=== PATIENT | female | born 1995 | race American Indian/Alaskan Native ===

== ENCOUNTER 2016-12-17 04:17 | Emergency (ER) | payer MEDICAID ==
[2016-12-17 04:38] VITALS: BP 135/104
[2016-12-17 05:21] LABS: Basophils % (Auto) 0.5 % (0.0-1.8); Eosinophils % (Auto) 0.6 % (0.0-4.3); Hematocrit 35.5 % (30.3-42.9); Hemoglobin 10.9 gm/dl (10.1-14.3); Mean Corpuscular HGB Conc 31 % (30-34); Mean Corpuscular Volume 82 fl (79-97); Platelet Count 332 K/mm3 (140-440); Red Blood Count 4.35 M/mm3 (3.65-5.03); Red Cell Distribution Width 15.4 % (13.2-15.2); White Blood Count 11.1 K/mm3 (4.5-11.0)
[2016-12-17 05:26] LABS: Alanine Aminotransferase 8 units/L (7-56); Albumin 4.1 g/dL (3.9-5); Albumin/Globulin Ratio 1.4 %; Alkaline Phosphatase 67 units/L (35-129); Anion Gap 18 mmol/L; Bilirubin,Total 0.3 mg/dL (0.1-1.2); Blood Urea Nitrogen 12 mg/dL (7-17); Calcium 8.5 mg/dL (8.4-10.2); Carbon Dioxide 24 mmol/L (22-30); Chloride 102.8 mmol/L (98-107); Glucose 93 mg/dL (65-100); Lipase 26 units/L (13-60); Potassium 4.3 mmol/L (3.6-5.0); Sodium 140 mmol/L (137-145); Total Protein 7.1 g/dL (6.3-8.2)
[2016-12-17] MEDS ORDERED: TYLENOL ONE (05:39)
[2016-12-17] MEDS ORDERED: TYLENOL PO ONE (05:43)
[2016-12-17 05:54] LABS: Mean Corpuscular Hemoglobin 25 pg (28-32)
--- NOTE | 2016-12-17 14:58 | ED Elopement Review ---
ED Pt Elopement review - Results review Lab results: Laboratory Tests 12/17/16 12/17/16 04:49 04:49 WBC 11.1 H RBC 4.35 Hgb 10.9 Hct 35.5 MCV 82 MCH 25 L MCHC 31 RDW 15.4 H Plt Count 332 Lymph % (Auto) 9.8 L Oliver % (Auto) 4.6 Eos % (Auto) 0.6 Baso % (Auto) 0.5 Lymph # 1.1 L Oliver # 0.5 Eos # 0.1 Baso # 0.1 Seg Neutrophils % 84.5 H Seg Neutrophils # 9.4 H Sodium 140 Potassium 4.3 Chloride 102.8 Carbon Dioxide 24 Anion Gap 18 BUN 12 Creatinine 0.6 L Estimated GFR > 60 BUN/Creatinine Ratio 20.00 Glucose 93 Calcium 8.5 Total Bilirubin 0.3 AST 11 ALT 8 Alkaline Phosphatase 67 Total Protein 7.1 Albumin 4.1 Albumin/Globulin Ratio 1.4 Lipase 26 - Call Back decision Pt Call Back Decision: Call pt to return to ED PAUL (abdominal pain, tachycardia and leukocytosis should be further evaluated)
== END 2016-12-17 08:37 | disposition left against medical advice (07) ==
LOC: ED 04:17
DX: R10.9 Unspecified abdominal pain (principal); Z53.21 Procedure and treatment not carried out due to patient leaving prior to being seen by health care provider
CPT/HCPCS: 36415; 80053; 83690; 85025

== ENCOUNTER 2017-08-02 13:52 | Emergency (ER) | payer MEDICAID ==
[2017-08-02 15:00] VITALS: BP 156/101
[2017-08-02 16:27] LABS: Bacteria,Urine 1+ /HPF (Negative); Bilirubin,Urine NEG (Negative); Blood,Urine NEG (Negative); Ketones,Urine NEG (Negative); Leukocyte Esterase,Urine NEG (Negative); Mucus,Urine 3+ /HPF; Nitrite,Urine NEG (Negative); Protein,Urine <15 mg/dL mg/dL (Negative); Urobilinogen,Urine < 2.0 mg/dL (<2.0)
--- NOTE | 2017-08-02 18:23 | Emergency Department Report ---
HPI - General Chief Complaint: Urogenital-Female Time Seen by Provider: 08/02/17 17:30 - HPI HPI: Patient is a 22-year-old female presents to the ED complaining of vaginal discharge with foul odor times 2 weeks. Patient describes discharge as white, creamy consistency. She denies any vaginal lesions or pain. She states last menstrual period was July 07 2017. Patient reports recent unprotected sex with her partner. She found that recently that her partner is cheating on her. Patient denies any fever, chills, nausea or vomiting vaginal itching, dysuria, vaginal bleeding, dyspareunia. ED Past Medical Hx - Past Medical History Previous Medical History?: Yes Hx Asthma: Yes - Surgical History Past Surgical History?: Yes Additional Surgical History: hernia repair - Social History Smoking Status: Never Smoker Substance Use Type: Alcohol - Medications Home Medications: Home Medications Medication Instructions Recorded Confirmed Last Taken Type Fluconazole [Diflucan TAB] 150 mg PO ONCE #1 tablet 08/02/17 Unknown Rx Sulfamethoxazole/Trimethoprim 1 each PO BID #14 tablet 08/02/17 Unknown Rx [Bactrim DS TAB] metroNIDAZOLE 0.75% [Vandazole 1 applicator VG QHS #1 tube 08/02/17 Unknown Rx 0.75% VAGINAL] ED Review of Systems ROS: Stated complaint: VAGINAL DISCOMFORT Other details as noted in HPI Constitutional: denies: chills, fever Eyes: denies: eye pain, eye discharge, vision change ENT: denies: ear pain, throat pain Respiratory: denies: cough, shortness of breath, wheezing Cardiovascular: denies: chest pain, palpitations Endocrine: no symptoms reported Gastrointestinal: denies: abdominal pain, nausea, diarrhea Genitourinary: denies: urgency, dysuria, discharge Musculoskeletal: denies: back pain, joint swelling, arthralgia Skin: denies: rash, lesions Neurological: denies: headache, weakness, paresthesias Psychiatric: denies: anxiety, depression Hematological/Lymphatic: denies: easy bleeding, easy bruising Physical Exam - Physical Exam Vital Signs: Vital Signs 08/02/17 14:58 Temperature 99.5 F Pulse Rate 91 H Respiratory 16 Rate Blood Pressure 156/101 O2 Sat by Pulse 100 Oximetry Physical Exam: GENERAL: Alert and oriented x3, no apparent distress, Normal Gait, atraumatic. LUNGS: Symetrical with respiration, No wheezing, no rales or crackles, CTAB. HEART: S1, S2 present, regular rate and rhythm without murmur, no rubs, no gallops. Non tender to palpation ABDOMEN: No organomegaly was noted,Positive bowel sounds, soft, and non- distended. . Nontender to palpation on all Quadrants, NO CVA tenderness. BACK: Full range of motion, no spinal tenderness, nontender to palpation. GENITOURINARY: External genitalia without erythema, exudate or discharge. Vaginal vault is without discharge. Cervix is of normal color without lesion. Cervical os is closed. No bleeding noted. Uterus is noted to be of normal size and nontender. No cervical motion tenderness. No masses are palpated. The adnexa are without masses or tenderness. SKIN: Warm and dry, No lesions, No ulceration or induration present. ED Course Vital Signs 08/02/17 14:58 Temperature 99.5 F Pulse Rate 91 H Respiratory 16 Rate Blood Pressure 156/101 O2 Sat by Pulse 100 Oximetry ED Medical Decision Making - Medical Decision Making 22 -year-old female presents with UTI and possible STD exposure. ED course: Urinanalysis and gonorrhea and Chlamydia cultures obtained. Urinalysis positive for bacteria Discussed with patient the likelihood of an STD is very low based on labs. Discussed with The patient wet prep is negative as well as urinalysis is negative for white count Discussed with patient findings and treatment I discussed the patient and then in 3 days STD testing P that she could call for results. This patient is a*sister have any worsening symptoms return to ED. I suggested the patient as she can to one dose of non-scented douche to get rid of a vaginal odor Discussed the follow-up with the health department for further STD testing. Patient's alert and oriented times 3. Vital signs are normal patient is in no acute discharge. Patient will be discharged home with instructions. She received antibiotics for urinary tract infection as well as Diflucan to treat prophylaxis is sufficient after antibiotic use. Also gave patient a trial of metronidazole vaginal cream Critical care attestation.: If time is entered above; I have spent that time in minutes in the direct care of this critically ill patient, excluding procedure time. ED Disposition Clinical Impression: Possible exposure to STD UTI (urinary tract infection) Qualifiers: Urinary tract infection type: acute cystitis Hematuria presence: without hematuria Qualified Code(s): N30.00 - Acute cystitis without hematuria Disposition: DC- TO HOME OR SELFCARE Is pt being admited?: No Does the pt Need Aspirin: No Condition: Stable Instructions: Urinary Tract Infection in Women (ED), Dysuria (ED) Additional Instructions: Follow-up with the [employer] [employer]/primary-care physician. Return to ED if you develop new symptoms or new symptoms resolved Your current Chlamydia cultures will be back in 3 days. You can call to get the results. Prescriptions: metroNIDAZOLE 0.75% [Vandazole 0.75% VAGINAL] 1 applicator VG QHS #1 tube Fluconazole [Diflucan TAB] 150 mg PO ONCE #1 tablet Sulfamethoxazole/Trimethoprim [Bactrim DS TAB] 1 each PO BID #14 tablet Referrals: PRIMARY MD CLINT [Primary Care Provider] - 3-5 Days [facility] [Outside] - 3-5 Days [facility] [Outside] - 3-5 Days TAMI HAYES MD [Referring] - 3-5 Days Forms: Work/School Release Form(ED) Time of Disposition: 18:45
== END 2017-08-02 19:00 | disposition home or self-care (01) ==
LOC: ED 13:52
DX: N30.00 Acute cystitis without hematuria (principal); J45.909 Unspecified asthma, uncomplicated
CPT/HCPCS: 81001; 81025; 87210; 87591

== ENCOUNTER 2017-11-22 14:21 | Outpatient (CLI) | payer OTHER ==
--- NOTE | 2017-11-23 10:40 | Ultrasound Report ---
BILATERAL BREAST ULTRASOUND: 11/22/17 14:21:00 CLINICAL: 22 year-old with bilateral mastodynia. COMPARISON: None. FINDINGS: Ultrasound of both breasts(including all four quadrants and the retroareolar area of each breast) was performed and demonstrated normal fibroglandular structures are normal fatty structures. No mass, cyst or shadowing. IMPRESSION: Normal bilateral breast ultrasound. No explanation for bilateral breast pain. BI-RADS 1 - - Negative RECOMMENDATION: Clinical followup and routine mammographic screening based on ACS guidelines. Consider diagnostic mammography if pain persists and particularly if there is focal pain.
== END 2017-11-22 14:22 | disposition home or self-care (01) ==
LOC: US 14:21
PROVIDERS: ATTEND Nurse Practitioner Family
DX: N64.4 Mastodynia (principal)

== ENCOUNTER 2018-09-24 19:30 | Emergency (ER) | payer SELFPAY ==
[2018-09-24 20:02] VITALS: BP 127/76
[2018-09-24 20:46] LABS: HCG Qualitative,Urine Negative (Negative)
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
[2018-09-24 22:12] LABS: Bacteria,Urine 1+ /HPF (Negative); Bilirubin,Urine NEG (Negative); Blood,Urine NEG (Negative); Color,Urine Yellow (Yellow); Mucus,Urine 3+ /HPF
[2018-09-25] MEDS ORDERED: ROCEPHIN IM ONE (00:41)
[2018-09-25] MEDS ORDERED: ZOFRAN ORAL LIQ PO ONE (00:41)
[2018-09-25] MEDS ORDERED: NORCO 5/325 PO ONE (00:41)
[2018-09-25] MEDS ORDERED: ZITHROMAX PO ONE (00:41)
[2018-09-25] MEDS ORDERED: BACTRIM DS PO ONE (00:46)
[2018-09-25] MEDS ORDERED: XYLOCAINE 1% MPF 5 mL INFILTRATI ONE (00:48)
[2018-09-25] MEDS ORDERED: BENADRYL PO ONE (00:48)
[2018-09-25] MEDS ORDERED: DELTASONE PO ONE (00:48)
[2018-09-25] MEDS ORDERED: ZOFRAN ODT PO ONE (00:54)
== END 2018-09-25 02:20 | disposition home or self-care (01) ==
LOC: ED 19:30
DX: N30.00 Acute cystitis without hematuria (principal); R51 Headache; R11.2 Nausea with vomiting, unspecified; J45.909 Unspecified asthma, uncomplicated; F17.200 Nicotine dependence, unspecified, uncomplicated; Z91.010 Allergy to peanuts; Z88.0 Allergy status to penicillin
CPT/HCPCS: 81001; 81025; 87086; 87210; 87591; 96372; 99284; J0696; J7512; Q0162

== ENCOUNTER 2018-10-31 17:56 | Emergency (ER) | payer OTHER ==
--- NOTE | 2018-10-31 18:04 | Emergency Department Report ---
Blank Doc - Documentation Documentation: This is a 23-year-old female that presents with vaginal bleeding with dizziness and headache x1 day. Denies any abdominal or pelvic pain. This initial assessment diagnostic orders/clinical plan/treatment(s) is/are subject to change based on patient's health status, clinical progression and re- assessment by fellow clinical providers in the ED. Further treatment and workup at subsequent clinical providers discretion. Patient/guardians urged not to elope from ED s their condition may be serious if not clinically assessed and managed. Initial orders include: 1-Patient sent to [facility] for further evaluation and treatment 2- Labs 3- UA
[2018-10-31 18:58] LABS: Basophils % (Auto) 0.4 % (0.0-1.8); Eosinophils % (Auto) 0.3 % (0.0-4.3); Hematocrit 38.6 % (30.3-42.9); Hemoglobin 12.2 gm/dl (10.1-14.3); Lymphocytes # (Auto) 2.4 K/mm3 (1.2-5.4); Lymphocytes % (Auto) 34.8 % (13.4-35.0); Mean Corpuscular HGB Conc 32 % (30-34); Mean Corpuscular Volume 84 fl (79-97); Monocytes # (Auto) 0.3 K/mm3 (0.0-0.8); Monocytes % (Auto) 3.7 % (0.0-7.3); Platelet Count 363 K/mm3 (140-440); Red Blood Count 4.61 M/mm3 (3.65-5.03); Red Cell Distribution Width 16.2 % (13.2-15.2)
[2018-10-31 19:15] LABS: BUN/Creatinine Ratio 18; Blood Urea Nitrogen 11 mg/dL (7-17); Calcium 9.5 mg/dL (8.4-10.2); Hemolysis Index 24
[2018-10-31 19:19] LABS: Bacteria,Urine 1+ /HPF (Negative); Bilirubin,Urine NEG (Negative); Blood,Urine LG (Negative); Color,Urine Yellow (Yellow); Mucus,Urine 2+ /HPF
[2018-10-31] MEDS ORDERED: TORADOL ONE (21:53)
[2018-10-31] MEDS ORDERED: ZOFRAN ONE (21:53)
--- NOTE | 2018-10-31 21:59 | Emergency Department Report ---
ED General Adult HPI - General Chief complaint: Vaginal Bleeding Stated complaint: VAGINAL BLEEDING/DIZZINESS/HEADACHE Time Seen by Provider: 10/31/18 18:00 Source: patient Mode of arrival: Ambulatory Limitations: No Limitations - History of Present Illness Initial comments: Patient is 23 years old female with no significant past medical history except for migraine. Patient presented to the ER complaining of headache and dizziness for the last 3 weeks. Patient stated that she started her period and today and is very heavy. Patient denied any focal weakness, numbness or tingling sensation. Patient denied any chest pain or shortness of breath. No abdominal pain. Severity scale (0 -10): 10 - Related Data Previous Rx's Medication Instructions Recorded Last Taken Type Fluconazole [Diflucan TAB] 150 mg PO ONCE #1 tablet 08/02/17 Unknown Rx Sulfamethoxazole/Trimethoprim 1 each PO BID #14 tablet 08/02/17 Unknown Rx [Bactrim DS TAB] metroNIDAZOLE 0.75% [Vandazole 1 applicator VG QHS #1 tube 08/02/17 Unknown Rx 0.75% VAGINAL] Fluconazole [Diflucan TAB] 100 mg PO QDAY 2 Days #2 tablet 09/25/18 Unknown Rx Naproxen 500 mg PO BID PRN #12 tablet 09/25/18 Unknown Rx Ondansetron (Nf) [Zofran TAB] 8 mg PO Q8HR PRN #12 tablet 09/25/18 Unknown Rx Sulfamethoxazole/Trimethoprim 1 each PO BID 7 Days #14 tablet 09/25/18 Unknown Rx [Bactrim DS TAB] Allergies Allergy/AdvReac Type Severity Reaction Status Date / Time peanut Allergy Swelling Verified 09/24/18 19:58 Penicillins Allergy Itching Verified 09/24/18 19:58 ED Review of Systems ROS: Stated complaint: VAGINAL BLEEDING/DIZZINESS/HEADACHE Other details as noted in HPI Comment: All other systems reviewed and negative Constitutional: denies: chills, fever Respiratory: denies: cough, orthopnea, shortness of breath, SOB with exertion, SOB at rest, wheezing Cardiovascular: denies: chest pain, palpitations Gastrointestinal: denies: abdominal pain, nausea, vomiting, diarrhea, constipation, hematemesis, melena, hematochezia Musculoskeletal: denies: back pain Neurological: headache. denies: weakness, numbness, paresthesias, confusion, abnormal gait ED Past Medical Hx - Past Medical History Hx Headaches / Migraines: Yes Hx Asthma: Yes - Surgical History Additional Surgical History: hernia repair, - Social History Smoking Status: Never Smoker Substance Use Type: Alcohol - Medications Home Medications: Home Medications Medication Instructions Recorded Confirmed Last Taken Type Fluconazole [Diflucan TAB] 150 mg PO ONCE #1 tablet 08/02/17 Unknown Rx Sulfamethoxazole/Trimethoprim 1 each PO BID #14 tablet 08/02/17 Unknown Rx [Bactrim DS TAB] metroNIDAZOLE 0.75% [Vandazole 1 applicator VG QHS #1 tube 08/02/17 Unknown Rx 0.75% VAGINAL] Fluconazole [Diflucan TAB] 100 mg PO QDAY 2 Days #2 tablet 09/25/18 Unknown Rx Naproxen 500 mg PO BID PRN #12 tablet 09/25/18 Unknown Rx Ondansetron (Nf) [Zofran TAB] 8 mg PO Q8HR PRN #12 tablet 09/25/18 Unknown Rx Sulfamethoxazole/Trimethoprim 1 each PO BID 7 Days #14 tablet 09/25/18 Unknown Rx [Bactrim DS TAB] ED Physical Exam - General Limitations: No Limitations General appearance: alert, in no apparent distress - Head Head exam: Present: atraumatic, normocephalic, normal inspection - Eye Eye exam: Present: normal appearance - ENT ENT exam: Present: normal exam, normal orophraynx, mucous membranes moist - Neck Neck exam: Present: normal inspection, full ROM. Absent: tenderness, meningismus, lymphadenopathy, thyromegaly - Respiratory Respiratory exam: Present: normal lung sounds bilaterally - Cardiovascular Cardiovascular Exam: Present: regular rate, normal rhythm, normal heart sounds - GI/Abdominal GI/Abdominal exam: Present: soft, normal bowel sounds. Absent: distended, tenderness, guarding, rebound, rigid, organomegaly, mass, bruit, pulsatile mass, hernia - Extremities Exam Extremities exam: Present: normal inspection, full ROM, normal capillary refill. Absent: tenderness, pedal edema, calf tenderness - Back Exam Back exam: Present: normal inspection, full ROM. Absent: CVA tenderness (R), CVA tenderness (L), muscle spasm, paraspinal tenderness, vertebral tenderness, rash noted - Neurological Exam Neurological exam: Present: alert, oriented X3, CN II-XII intact, normal gait, reflexes normal - Psychiatric Psychiatric exam: Present: normal mood - Skin Skin exam: Present: warm, intact, normal color ED Course Vital Signs 10/31/18 10/31/18 18:04 22:22 Temperature 97.9 F Pulse Rate 105 H Respiratory 18 18 Rate Blood Pressure 135/85 O2 Sat by Pulse 99 99 Oximetry ED Medical Decision Making - Lab Data Result diagrams: 10/31/18 18:15 10/31/18 18:15 - Radiology Data Radiology results: report reviewed CT brain is unremarkable. - Medical Decision Making Patient stated that she is feeling much better. CT brain is negative for acute finding. Patient received Toradol for headache. 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 Critical care attestation.: If time is entered above; I have spent that time in minutes in the direct care of this critically ill patient, excluding procedure time. ED Disposition Clinical Impression: Acute headache, Menstrual cramps Disposition: - TO HOME OR SELFCARE Is pt being admited?: No Condition: Stable Instructions: Dysmenorrhea (ED), Acute Headache (ED) Referrals: YOSSI WHITEHEAD MD [Referring] - 3-5 Days
[2018-10-31] MEDS ORDERED: ZOFRAN IV ONE (22:20)
[2018-10-31] MEDS ORDERED: TORADOL IM ONE (22:20)
--- NOTE | 2018-10-31 22:33 | Cat Scan Report ---
FINAL REPORT EXAM: CT HEAD/BRAIN WO CON HISTORY: headache TECHNIQUE: CT was performed from the foramen magnum through the vertex in the axial plane without th e use of intravenous contrast. PRIORS: None. FINDINGS: The shah/white matter attenuation pattern is normal. There is no mass lesion or mass effect. There ar e no abnormal extra-axial fluid collections. There is no evidence of acute intracranial hemorrhage or infarct. The ventricles are of normal size and configuration. The skull and orbits are unremarkable . The visualized paranasal sinuses are clear. IMPRESSION: Normal CT of the head.
[2018-11-01 00:34] VITALS: BP 121/87
== END 2018-11-01 00:32 | disposition home or self-care (01) ==
LOC: ED 17:56
DX: N94.6 Dysmenorrhea, unspecified (principal); G43.909 Migraine, unspecified, not intractable, without status migrainosus; J45.909 Unspecified asthma, uncomplicated; Z88.0 Allergy status to penicillin; Z91.010 Allergy to peanuts
CPT/HCPCS: 36415; 70450; 80048; 81001; 84703; 85025; 86850; 86900; 86901; 96372; 96374; 99284; J1885; J2405

== ENCOUNTER 2018-11-21 21:44 | Emergency (ER) | payer SELFPAY ==
[2018-11-22 01:44] VITALS: BP 120/75
[2018-11-22 03:03] LABS: Bilirubin,Urine NEG (Negative); Blood,Urine NEG (Negative); Color,Urine Yellow (Yellow); Mucus,Urine FEW /HPF; Protein,Urine <15 mg/dL mg/dL (Negative); WBC,Urine < 1.0 /HPF (0.0-6.0)
[2018-11-22 03:09] LABS: HCG Qualitative,Urine Negative (Negative)
== END 2018-11-22 07:25 | disposition left against medical advice (07) ==
LOC: ED 21:44
DX: R21 Rash and other nonspecific skin eruption (principal); Z53.21 Procedure and treatment not carried out due to patient leaving prior to being seen by health care provider
CPT/HCPCS: 81001; 81025

== ENCOUNTER 2019-03-19 18:03 | Emergency (ER) | payer OTHER ==
[2019-03-19 19:11] LABS: Hematocrit 37.8 % (30.3-42.9); Hemoglobin 12.3 gm/dl (10.1-14.3); Mean Corpuscular HGB Conc 33 % (30-34); Mean Corpuscular Volume 81 fl (79-97); Platelet Count 334 K/mm3 (140-440); Red Blood Count 4.68 M/mm3 (3.65-5.03); Red Cell Distribution Width 16.3 % (13.2-15.2)
[2019-03-19 19:17] LABS: Bilirubin,Urine NEG (Negative); Blood,Urine NEG (Negative); Color,Urine Yellow (Yellow); Mucus,Urine 3+ /HPF; Protein,Urine <15 mg/dL mg/dL (Negative); Urobilinogen,Urine < 2.0 mg/dL (<2.0)
[2019-03-19 19:26] LABS: BUN/Creatinine Ratio 10; Blood Urea Nitrogen 8 mg/dL (7-17); Calcium 9.3 mg/dL (8.4-10.2); Hemolysis Index 4
[2019-03-19] MEDS ORDERED: FLAGYL PO ONE (22:21)
[2019-03-19] MEDS ORDERED: TORADOL IV ONE (22:21)
[2019-03-19] MEDS ORDERED: ZITHROMAX PO ONE (22:21)
[2019-03-19] MEDS ORDERED: ZOFRAN IV ONE (22:23)
[2019-03-19] MEDS ORDERED: NACL 0.9% 1000 ML 1,000 ML IV ONE (22:23)
--- NOTE | 2019-03-20 01:19 | Emergency Department Report ---
ED Abdominal Pain HPI - General Chief Complaint: Urogenital-Female Stated Complaint: HEADACHE/VAG DISCHARGE Time Seen by Provider: 03/19/19 21:45 Source: patient Mode of arrival: Ambulatory Limitations: No Limitations - History of Present Illness Initial Comments: Patient is a 24-year-old -[place] female with no past medical history presents to the ED with complaint of acute onset persistent generalized weakness and fatigue, vaginal discharge with malodorous smell, diffuse lower abdominal pain that radiates to her lower back and generalized body aches and pains with nausea for the last 1 week, worse in the last 2 days. Patient denies fever, chills, vomiting, diarrhea, dysuria, urinary frequency and urgency, vaginal bleeding, hematuria, dizziness, chest pain, shortness of breath, change in urination or headache. MD Complaint: abdominal pain, flank pain, other (Low back pain, Diffuse body aches, generalized weakness and fatigue) -: Sudden, week(s) (1) Location: suprapubic Radiation: back (lower) Migration to: no migration Severity scale (0 -10): 5 Quality: cramping, aching, sharp Consistency: constant Improves With: nothing Worsens With: nothing Associated Symptoms: denies other symptoms, nausea. denies: vomiting, diarrhea, fever, chills, constipation, dysuria, hematemesis, hematochezia, melena, anorexia - Related Data LMP Date: 03/04/19 Previous Rx's Medication Instructions Recorded Last Taken Type Fluconazole [Diflucan TAB] 150 mg PO ONCE #1 tablet 08/02/17 Unknown Rx Sulfamethoxazole/Trimethoprim 1 each PO BID #14 tablet 08/02/17 Unknown Rx [Bactrim DS TAB] metroNIDAZOLE 0.75% [Vandazole 1 applicator VG QHS #1 tube 08/02/17 Unknown Rx 0.75% VAGINAL] Fluconazole [Diflucan TAB] 100 mg PO QDAY 2 Days #2 tablet 09/25/18 Unknown Rx Naproxen 500 mg PO BID PRN #12 tablet 09/25/18 Unknown Rx Ondansetron (Nf) [Zofran TAB] 8 mg PO Q8HR PRN #12 tablet 09/25/18 Unknown Rx Sulfamethoxazole/Trimethoprim 1 each PO BID 7 Days #14 tablet 09/25/18 Unknown Rx [Bactrim DS TAB] Ondansetron [Zofran Odt] 4 mg PO Q8HR PRN #14 tab.rapdis 11/01/18 Unknown Rx medroxyPROGESTERone ACETATE 10 mg PO QDAY #7 tablet 11/01/18 Unknown Rx [Provera] traMADol [Ultram 50 MG tab] 50 mg PO Q4HR PRN #14 tablet 11/01/18 Unknown Rx Ibuprofen [Motrin] 800 mg PO Q8HR PRN #20 tablet 03/20/19 Unknown Rx Ondansetron [Zofran Odt] 4 mg PO Q8HR PRN #15 tab.rapdis 03/20/19 Unknown Rx metroNIDAZOLE [Flagyl] 500 mg PO Q12HR #14 tab 03/20/19 Unknown Rx Allergies Allergy/AdvReac Type Severity Reaction Status Date / Time peanut Allergy Swelling Verified 09/24/18 19:58 Penicillins Allergy Itching Verified 09/24/18 19:58 ED Review of Systems ROS: Stated complaint: HEADACHE/VAG DISCHARGE Other details as noted in HPI Constitutional: malaise, weakness. denies: chills, fever Eyes: denies: eye pain, eye discharge, vision change ENT: denies: ear pain, throat pain Respiratory: denies: cough, orthopnea, shortness of breath, SOB with exertion, SOB at rest, stridor, wheezing Cardiovascular: denies: chest pain, palpitations Endocrine: no symptoms reported Gastrointestinal: abdominal pain, nausea. denies: vomiting, diarrhea, constipation, hematemesis Genitourinary: discharge. denies: urgency, dysuria Musculoskeletal: denies: back pain, joint swelling, arthralgia Skin: denies: rash, lesions, change in color, change in hair/nails, pruritus Neurological: denies: headache, weakness, paresthesias Psychiatric: anxiety. denies: depression Hematological/Lymphatic: denies: easy bleeding, easy bruising ED Past Medical Hx - Past Medical History Hx Headaches / Migraines: Yes Hx Asthma: Yes - Surgical History Additional Surgical History: hernia repair, - Social History Smoking Status: Never Smoker Substance Use Type: None - Medications Home Medications: Home Medications Medication Instructions Recorded Confirmed Last Taken Type Fluconazole [Diflucan TAB] 150 mg PO ONCE #1 tablet 08/02/17 Unknown Rx Sulfamethoxazole/Trimethoprim 1 each PO BID #14 tablet 08/02/17 Unknown Rx [Bactrim DS TAB] metroNIDAZOLE 0.75% [Vandazole 1 applicator VG QHS #1 tube 08/02/17 Unknown Rx 0.75% VAGINAL] Fluconazole [Diflucan TAB] 100 mg PO QDAY 2 Days #2 tablet 09/25/18 Unknown Rx Naproxen 500 mg PO BID PRN #12 tablet 09/25/18 Unknown Rx Ondansetron (Nf) [Zofran TAB] 8 mg PO Q8HR PRN #12 tablet 09/25/18 Unknown Rx Sulfamethoxazole/Trimethoprim 1 each PO BID 7 Days #14 tablet 09/25/18 Unknown Rx [Bactrim DS TAB] Ondansetron [Zofran Odt] 4 mg PO Q8HR PRN #14 tab.rapdis 11/01/18 Unknown Rx medroxyPROGESTERone ACETATE 10 mg PO QDAY #7 tablet 11/01/18 Unknown Rx [Provera] traMADol [Ultram 50 MG tab] 50 mg PO Q4HR PRN #14 tablet 11/01/18 Unknown Rx Ibuprofen [Motrin] 800 mg PO Q8HR PRN #20 tablet 03/20/19 Unknown Rx Ondansetron [Zofran Odt] 4 mg PO Q8HR PRN #15 tab.rapdis 03/20/19 Unknown Rx metroNIDAZOLE [Flagyl] 500 mg PO Q12HR #14 tab 03/20/19 Unknown Rx ED Physical Exam - General Limitations: No Limitations General appearance: alert, in no apparent distress - Head Head exam: Present: atraumatic, normocephalic, normal inspection - Eye Eye exam: Present: normal appearance, PERRL, EOMI. Absent: scleral icterus, conjunctival injection, nystagmus, periorbital swelling, periorbital tenderness Pupils: Present: normal accommodation - ENT ENT exam: Present: normal exam, normal orophraynx, mucous membranes moist, TM's normal bilaterally, normal external ear exam - Neck Neck exam: Present: normal inspection, full ROM. Absent: tenderness - Respiratory Respiratory exam: Present: normal lung sounds bilaterally. Absent: respiratory distress, wheezes, rales, rhonchi, chest wall tenderness, accessory muscle use, decreased breath sounds, prolonged expiratory - Cardiovascular Cardiovascular Exam: Present: normal rhythm, bradycardia, normal heart sounds. Absent: systolic murmur, diastolic murmur, rubs, gallop - GI/Abdominal GI/Abdominal exam: Present: soft, tenderness (suprapubic), normal bowel sounds. Absent: distended, guarding, rebound, hyperactive bowel sounds, organomegaly - Rectal Rectal exam: Present: deferred - External exam: Present: normal external exam Speculum exam: Present: vaginal discharge, cervical discharge Bi-manual exam: Present: cervical motion tendernes, adnexal tenderness (right), uterine tenderness, other (Female RN health program analyst present) - Extremities Exam Extremities exam: Present: normal inspection, full ROM, normal capillary refill - Back Exam Back exam: Present: normal inspection, full ROM. Absent: tenderness, CVA tenderness (R), CVA tenderness (L), muscle spasm, vertebral tenderness - Neurological Exam Neurological exam: Present: alert, oriented X3 - Psychiatric Psychiatric exam: Present: normal affect, normal mood - Skin Skin exam: Present: warm, dry, intact, normal color. Absent: rash ED Course Vital Signs 03/19/19 03/19/19 18:31 22:41 Temperature 98.8 F Pulse Rate 55 L 65 Respiratory 18 18 Rate Blood Pressure 132/87 Blood Pressure 138/95 [Left] O2 Sat by Pulse 97 Oximetry - Reevaluation(s) Reevaluation #1: 03/20/19 01:22 Patient is alert and oriented 3 and is not in distress but anxious. Lab test results are unremarkable. Pelvic exam is positive for cervical motion tenderness and greenish yellow malodorous vaginal discharge. Patient was treated empirically in the ED for acute pelvic inflammatory disease and was sent home on medications. Patient advised to follow-up with AUDIT CLERK physician in 7- 10 days for reevaluation. Patient advised to return to the ED immediately if symptoms get worse. ED Medical Decision Making - Lab Data Result diagrams: 03/19/19 18:56 03/19/19 18:56 - Medical Decision Making Patient is alert and oriented 3 and is not in distress but anxious. Lab test results are unremarkable. Pelvic exam is positive for cervical motion tenderness and greenish yellow malodorous vaginal discharge. Patient was t reated empirically in the ED for acute pelvic inflammatory disease and was sent home on medications. Patient advised to follow-up with AUDIT CLERK physician in 7-10 days for reevaluation. Patient advised to return to the ED immediately if symptoms get worse. - Differential Diagnosis Abdominal pain, Acute PID, Generalized weakness Critical care attestation.: If time is entered above; I have spent that time in minutes in the direct care of this critically ill patient, excluding procedure time. ED Disposition Clinical Impression: Acute pelvic inflammatory disease (PID) Disposition: TO HOME OR SELFCARE Is pt being admited?: No Does the pt Need Aspirin: No Condition: Stable Instructions: Pelvic Inflammatory Disease (ED), Bacterial Vaginosis (ED), Abdominal Pain (ED) Additional Instructions: Take medications with food, drink plenty of fluids and follow-up with your primary care physician in 7-10 days for reevaluation. Return to the ED immed iately if symptoms get worse. Prescriptions: metroNIDAZOLE [Flagyl] 500 mg PO Q12HR #14 tab Ibuprofen [Motrin] 800 mg PO Q8HR PRN #20 tablet PRN Reason: Pain , Severe (7-10) Ondansetron [Zofran Odt] 4 mg PO Q8HR PRN #15 tab.rapdis PRN Reason: Nausea Referrals: [facility] [Outside] - 3-5 Days Time of Disposition: : Print Language: GUINEAN
[2019-03-20 02:12] VITALS: BP 107/77
== END 2019-03-20 01:50 | disposition home or self-care (01) ==
LOC: ED 18:03
DX: N73.9 Female pelvic inflammatory disease, unspecified (principal); J45.909 Unspecified asthma, uncomplicated; G43.909 Migraine, unspecified, not intractable, without status migrainosus; Z79.899 Other long term (current) drug therapy; Z91.010 Allergy to peanuts; Z88.0 Allergy status to penicillin
CPT/HCPCS: 36415; 80048; 81001; 84436; 84443; 84481; 84702; 85027; 87210; 87591; 96361; 96374; 99284; J2405; J7030

== ENCOUNTER 2019-08-12 15:39 | Emergency (ER) | payer SELFPAY ==
[2019-08-12 15:48] VITALS: BP 130/86
--- NOTE | 2019-08-12 15:50 | Event Note ---
ED Screening Note ED Screening Note: states she was running in the house and tripped and slipped into the wall that occurred three days ago ambulatory never injured before states also has had vaginal discharge for a month no fever no abd pain LNMP: 07/30/19
--- NOTE | 2019-08-12 15:52 | Emergency Department Report ---
Chief Complaint: Urogenital-Female Stated Complaint: VAGINAL DISCHARGE/TOE INJURY Time Seen by Provider: 08/12/19 15:46 - HPI History of Present Illness: pt is a 24 yo female who states she was running in the house and tripped and slipped into the wall that occurred three days ago ambulatory without difficulty she states she has pain to her left third toe never injured before states also has had vaginal discharge for a month states it is brownish in color no fever no abd pain no v/d LNMP: 07/30/19 pt also had this complaint of vaginal discharge in March 2019 and had a pelvic examination at that time and the results showed she had a normal wet prep and negative G/C vitals are normal on exam: FROM of the left toes and left foot without difficulty mild TTP of the left third toe no ecchymosis, no edema neurovascularly intact pt presenting with most likely left third toe sprain, advised pt to take ibuprofen or tylenol, use ice for 15 minutes at a time, and follow up with an orthopedic doctor if symptoms are not improving due to pt having vaginal discharge for 1 month with no abd pain, no fever, no chills, no n/v, normal vitals, will have pt follow up with the health department for a full STD panel and womens health examination medical screening examination performed pt does not have a medical emergency at this time that would lead to loss of life or limb pt was referred to the appropriate resources - Exam Vital Signs: Vital Signs 08/12/19 08/12/19 15:46 15:48 Temperature 98.7 F 98.7 F Pulse Rate 77 77 Respiratory 18 18 Rate Blood Pressure 130/86 Blood Pressure 130/86 [Right] O2 Sat by Pulse 100 100 Oximetry MSE screening note: Focused history and physical exam performed. ED Disposition for MSE Clinical Impression: Toe pain, left, Encounter for medical screening examination Disposition: Z- MED SCREENING EXAM-LEFT Is pt being admited?: No Does the pt Need Aspirin: No Condition: Stable Additional Instructions: please follow up with an orthopedic doctor if your toe pain is not improving. follow up with the health department or a primary care clinic for full STD panel and further examination. return to the emergency room for any new or worsening symptoms. Referrals: BELLA GALLARDO MD [Staff Physician] - 2-[address] [facility] [Outside] - 2-3 Days [facility] [Outside] - 2-3 Days
== END 2019-08-12 16:11 | disposition left against medical advice (07) ==
LOC: ED 15:39
DX: M79.675 Pain in left toe(s) (principal)
CPT/HCPCS: 99281

== ENCOUNTER 2019-08-27 10:49 | Emergency (ER) | payer SELFPAY ==
[2019-08-27 10:54] VITALS: BP 138/88
[2019-08-27] MEDS ORDERED: predniSONE 20 MG TAB PO ONE (12:17)
[2019-08-27] MEDS ORDERED: KETOROLAC 60 MG/2 ML INJ IM ONE (12:17)
[2019-08-27] MEDS ORDERED: CYCLOBENZAPRINE 10 MG TAB PO ONE (12:29)
--- NOTE | 2019-08-27 12:39 | Emergency Department Report ---
ED Neck Pain/Injury HPI - General Chief Complaint: Neck Pain/Injury Stated Complaint: STIFF NECK PAIN Time Seen by Provider: 08/27/19 11:08 Mode of arrival: Ambulatory Limitations: No Limitations - History of Present Illness Initial Comments: This is a 24-year-old female nontoxic, well nourished in appearance, no acute signs of distress presents to the ED with c/o of acute right sided upper back pain. Patient stated she suddenly wake up with sharp pains this morning. Patient denies any radiation of pain. Patient stated that symptoms are subsided with rest and aggravated with movement. Patient denies any trauma. Denies any bladder or bowel instability. Patient denies any urinary symptoms. Denies any fever, chills, nausea, vomiting, headache, stiff neck, chest pain or shortness of breath. Patient denies any numbness or tingling. Patient stated allergies to penicillin. Denies significant past medical history. MD Complaint: upper back pain -: This morning Place: home Severity: mild Severity scale (0 -10): 8 Quality: aching Consistency: intermittent Improves With: immobilization Worsens With: movement of neck Associated Symptoms: none. denies: headache, fever, numbness, tingling, weakness, vertigo, difficulty walking, swollen glands, difficulty swallowing, nausea, vomiting Treatments Prior to Arrival: none - Related Data Previous Rx's Medication Instructions Recorded Last Taken Type Fluconazole [Diflucan TAB] 150 mg PO ONCE #1 tablet 08/02/17 Unknown Rx Sulfamethoxazole/Trimethoprim 1 each PO BID #14 tablet 08/02/17 Unknown Rx [Bactrim DS TAB] metroNIDAZOLE 0.75% [Vandazole 1 applicator VG QHS #1 tube 08/02/17 Unknown Rx 0.75% VAGINAL] Fluconazole [Diflucan TAB] 100 mg PO QDAY 2 Days #2 tablet 09/25/18 Unknown Rx Naproxen 500 mg PO BID PRN #12 tablet 09/25/18 Unknown Rx Ondansetron (Nf) [Zofran TAB] 8 mg PO Q8HR PRN #12 tablet 09/25/18 Unknown Rx Sulfamethoxazole/Trimethoprim 1 each PO BID 7 Days #14 tablet 09/25/18 Unknown Rx [Bactrim DS TAB] Ondansetron [Zofran Odt] 4 mg PO Q8HR PRN #14 tab.rapdis 11/01/18 Unknown Rx medroxyPROGESTERone ACETATE 10 mg PO QDAY #7 tablet 11/01/18 Unknown Rx [Provera] traMADoL [Ultram 50 MG tab] 50 mg PO Q4HR PRN #14 tablet 11/01/18 Unknown Rx Ibuprofen [Motrin] 800 mg PO Q8HR PRN #20 tablet 03/20/19 Unknown Rx Ondansetron [Zofran Odt] 4 mg PO Q8HR PRN #15 tab.rapdis 03/20/19 Unknown Rx metroNIDAZOLE [Flagyl] 500 mg PO Q12HR #14 tab 03/20/19 Unknown Rx Cyclobenzaprine [Flexeril] 10 mg PO QHS PRN #10 tablet 08/27/19 Unknown Rx Naproxen 500 mg PO Q12H PRN #20 tablet 08/27/19 Unknown Rx Allergies Allergy/AdvReac Type Severity Reaction Status Date / Time peanut Allergy Swelling Verified 09/24/18 19:58 Penicillins Allergy Itching Verified 09/24/18 19:58 ED Review of Systems ROS: Stated complaint: STIFF NECK PAIN Other details as noted in HPI Constitutional: denies: chills, fever Eyes: denies: eye pain, eye discharge, vision change ENT: denies: ear pain, throat pain Respiratory: denies: cough, shortness of breath, wheezing Cardiovascular: denies: chest pain, palpitations Endocrine: no symptoms reported Gastrointestinal: denies: abdominal pain, nausea, diarrhea Genitourinary: denies: urgency, dysuria, discharge Musculoskeletal: other (upper back pain). denies: back pain, joint swelling, arthralgia Skin: denies: rash, lesions Neurological: denies: headache, weakness, paresthesias Psychiatric: denies: anxiety, depression Hematological/Lymphatic: denies: easy bleeding, easy bruising ED Past Medical Hx - Past Medical History Previous Medical History?: Yes Hx Headaches / Migraines: Yes Hx Asthma: Yes - Surgical History Past Surgical History?: Yes Additional Surgical History: hernia repair, - Social History Smoking Status: Current Every Day Smoker Substance Use Type: Alcohol - Medications Home Medications: Home Medications Medication Instructions Recorded Confirmed Last Taken Type Fluconazole [Diflucan TAB] 150 mg PO ONCE #1 tablet 08/02/17 Unknown Rx Sulfamethoxazole/Trimethoprim 1 each PO BID #14 tablet 08/02/17 Unknown Rx [Bactrim DS TAB] metroNIDAZOLE 0.75% [Vandazole 1 applicator VG QHS #1 tube 08/02/17 Unknown Rx 0.75% VAGINAL] Fluconazole [Diflucan TAB] 100 mg PO QDAY 2 Days #2 tablet 09/25/18 Unknown Rx Naproxen 500 mg PO BID PRN #12 tablet 09/25/18 Unknown Rx Ondansetron (Nf) [Zofran TAB] 8 mg PO Q8HR PRN #12 tablet 09/25/18 Unknown Rx Sulfamethoxazole/Trimethoprim 1 each PO BID 7 Days #14 tablet 09/25/18 Unknown Rx [Bactrim DS TAB] Ondansetron [Zofran Odt] 4 mg PO Q8HR PRN #14 tab.rapdis 11/01/18 Unknown Rx medroxyPROGESTERone ACETATE 10 mg PO QDAY #7 tablet 11/01/18 Unknown Rx [Provera] traMADoL [Ultram 50 MG tab] 50 mg PO Q4HR PRN #14 tablet 11/01/18 Unknown Rx Ibuprofen [Motrin] 800 mg PO Q8HR PRN #20 tablet 03/20/19 Unknown Rx Ondansetron [Zofran Odt] 4 mg PO Q8HR PRN #15 tab.rapdis 03/20/19 Unknown Rx metroNIDAZOLE [Flagyl] 500 mg PO Q12HR #14 tab 03/20/19 Unknown Rx Cyclobenzaprine [Flexeril] 10 mg PO QHS PRN #10 tablet 08/27/19 Unknown Rx Naproxen 500 mg PO Q12H PRN #20 tablet 08/27/19 Unknown Rx ED Physical Exam - General Limitations: No Limitations General appearance: alert, in no apparent distress - Head Head exam: Present: atraumatic, normocephalic - Neck Neck exam: Present: normal inspection, full ROM. Absent: tenderness, meningismus, lymphadenopathy - Respiratory Respiratory exam: Present: normal lung sounds bilaterally. Absent: respiratory distress, wheezes, rales, rhonchi, stridor, chest wall tenderness, accessory muscle use, decreased breath sounds, prolonged expiratory - Cardiovascular Cardiovascular Exam: Present: regular rate, normal rhythm, normal heart sounds. Absent: bradycardia, tachycardia, irregular rhythm, systolic murmur, diastolic murmur, rubs, gallop - Extremities Exam Extremities exam: Present: normal inspection, full ROM, normal capillary refill. Absent: tenderness - Back Exam Back exam: Present: normal inspection, full ROM, paraspinal tenderness (right- sided cervical paraspinal). Absent: tenderness, CVA tenderness (R), CVA tenderness (L), muscle spasm, vertebral tenderness, rash noted - Neurological Exam Neurological exam: Present: alert, oriented X3, normal gait - Psychiatric Psychiatric exam: Present: normal affect, normal mood - Skin Skin exam: Present: warm, dry, intact, normal color. Absent: rash ED Course Vital Signs 08/27/19 10:50 Temperature 98.5 F Pulse Rate 80 Respiratory 18 Rate Blood Pressure 138/88 O2 Sat by Pulse 100 Oximetry - Reevaluation(s) Reevaluation #1: 08/27/19 12:41 Patient is speaking in full sentences with no signs of distress noted. ED Medical Decision Making - Medical Decision Making This is a 24-year-old female that presents with upper back strain. Patient is stable was examined by me. There is no spinal tenderness. There is no cauda equina syndrome during examination. No bladder or bowel instability. Patient received Toradol 60 mg IM and prednisone in the ED which stated that her symptoms has resolved and subsided. Patient is discharged with muscle relaxant and Motrin. Patient was instructed not to operate any machinery while taking muscle relaxant as they cause her drowsiness. Patient was referred to Follow-up with a primary care doctor in 3-5 days or if symptoms worsen and continue return to emergency room as soon as possible. At time of discharge, the patient does not seem toxic or ill in appearance. No acute signs of distress noted. Patient agrees to discharge treatment plan of care. No further questions noted by the patient. This chart is dictated with using [employer] Critical care attestation.: If time is entered above; I have spent that time in minutes in the direct care of this critically ill patient, excluding procedure time. ED Disposition Clinical Impression: Cervical muscle strain Qualifiers: Encounter type: initial encounter Qualified Code(s): S16.1XXA - Strain of muscle, fascia and tendon at neck level, initial encounter Disposition: TO HOME OR SELFCARE Is pt being admited?: No Does the pt Need Aspirin: No Condition: Stable Instructions: Muscle Strain (ED), Cyclobenzaprine (By mouth) Additional Instructions: Follow-up with your primary care doctor in 3-5 days or if symptoms worsen such as bladder or bowel stability, chest pain, short of breath, numbness or tingling sensation in extremities, headache, dizziness, visual changes, nausea vomiting, or abdominal pain, return back to emergency room as was possible. Take naproxen and Flexeril as prescribed. Do not operate heavy machinery while taking Flexeril due to sedation Prescriptions: Cyclobenzaprine [Flexeril] 10 mg PO QHS PRN #10 tablet PRN Reason: Muscle Spasm Naproxen 500 mg PO Q12H PRN #20 tablet PRN Reason: Pain , Severe (7-10) Referrals: PRIMARY CAREMD [Primary Care Provider] - 3-5 Days KALEN CANNON MD [Staff Physician] - 3-5 Days [facility] [Outside] - 3-5 Days Forms: Work/School Release Form(ED)
== END 2019-08-27 13:57 | disposition home or self-care (01) ==
LOC: ED 10:49
DX: S16.1XXA Strain of muscle, fascia and tendon at neck level, initial encounter (principal); G43.909 Migraine, unspecified, not intractable, without status migrainosus; J45.909 Unspecified asthma, uncomplicated; F17.200 Nicotine dependence, unspecified, uncomplicated; Z88.0 Allergy status to penicillin; Z91.010 Allergy to peanuts; X58.XXXA Exposure to other specified factors, initial encounter; Y93.89 Activity, other specified; Y92.89 Other specified places as the place of occurrence of the external cause; Y99.8 Other external cause status
CPT/HCPCS: 96372; 99282; J1885; J7512

== ENCOUNTER 2019-10-04 16:55 | Emergency (ER) | payer SELFPAY ==
[2019-10-04 17:34] VITALS: BP 136/95
--- NOTE | 2019-10-04 17:36 | Emergency Department Report ---
Chief Complaint: Skin Rash Stated Complaint: RASH - HPI History of Present Illness: Inner thigh rash, mild irriation, no infection or bed bug infestion MSE complete dc'd home - Exam Vital Signs: Vital Signs 10/04/19 17:33 Temperature 98.7 F Pulse Rate 80 Respiratory 18 Rate Blood Pressure 136/95 O2 Sat by Pulse 99 Oximetry MSE screening note: Focused history and physical exam performed. Due to findings the following was ordered: ED Disposition for MSE Clinical Impression: Skin irritation Disposition: MED SCREENING EXAM-LEFT Condition: Stable Referrals: KALEN CANNON MD [Staff Physician] - as needed
== END 2019-10-04 16:57 | disposition left against medical advice (07) ==
LOC: ED 16:55
DX: R21 Rash and other nonspecific skin eruption (principal)
CPT/HCPCS: 99281

== ENCOUNTER 2020-05-30 13:48 | Emergency (ER) | payer SELFPAY ==
[2020-05-30 14:25] VITALS: BP 113/74
--- NOTE | 2020-05-30 19:16 | Emergency Department Report ---
ED Female HPI - General Chief complaint: Urogenital-Female Stated complaint: ABD PAIN/VAG DISCOMFORT/HEADACHES Time Seen by Provider: 05/30/20 18:03 Source: patient Mode of arrival: Ambulatory Limitations: No Limitations - History of Present Illness Initial comments: This is a 25-year-old female nontoxic, well nourished in appearance, no acute signs of distress presents to the ED with c/o of vaginal discharge, pelvic pain, and dysuria x 10 days. Patient denies any vaginal pain or swelling. Patient denies any vaginal ulcers or lesions. Patient denies any nausea, vomiting, chest pain, shortness of breathe, fever, chills, headache, back pain, numbness, tingling, stiff neck. Patient denies any other urinary symptoms. Denies any abdominal pain or flank pain. Patient stated allergies to PCN but does take Keflex with no reaction. Patient stated had sexual intercourse 2 weeks ago prior to the symptoms. MD Complaint: vaginal discharge, dysuria, pelvic pain -: days(s) (10) Radiation: non-radiating Severity: mild Severity scale (0 -10): 3 Quality: burning Consistency: constant Improves with: none Worsens with: urination Are you Now?: No Associated Symptoms: vaginal discharge, dysuria. denies: vaginal bleeding, abdominal pain, nausea/vomiting, fever/chills, headaches, loss of appetite, hematuria, rash, seizure, shortness of breath, syncope, weakness - Related Data Sexually active: Yes Previous Rx's Medication Instructions Recorded Last Taken Type Fluconazole (Nf) [Diflucan TAB] 150 mg PO ONCE #1 tablet 08/02/17 Unknown Rx Sulfamethoxazole/Trimethoprim 1 each PO BID #14 tablet 08/02/17 Unknown Rx [Bactrim DS TAB] metroNIDAZOLE 0.75% [Vandazole 1 applicator VG QHS #1 tube 08/02/17 Unknown Rx 0.75% VAGINAL] Fluconazole [Diflucan TAB] 100 mg PO QDAY 2 Days #2 tablet 09/25/18 Unknown Rx Naproxen 500 mg PO BID PRN #12 tablet 09/25/18 Unknown Rx Ondansetron (Nf) [Zofran TAB] 8 mg PO Q8HR PRN #12 tablet 09/25/18 Unknown Rx Sulfamethoxazole/Trimethoprim 1 each PO BID 7 Days #14 tablet 09/25/18 Unknown Rx [Bactrim DS TAB] Ondansetron [Zofran Odt] 4 mg PO Q8HR PRN #14 tab.rapdis 11/01/18 Unknown Rx medroxyPROGESTERone ACETATE 10 mg PO QDAY #7 tablet 11/01/18 Unknown Rx [Provera] traMADoL [Ultram 50 MG tab] 50 mg PO Q4HR PRN #14 tablet 11/01/18 Unknown Rx Ibuprofen [Motrin] 800 mg PO Q8HR PRN #20 tablet 03/20/19 Unknown Rx Ondansetron [Zofran Odt] 4 mg PO Q8HR PRN #15 tab.rapdis 03/20/19 Unknown Rx metroNIDAZOLE [Flagyl] 500 mg PO Q12HR #14 tab 03/20/19 Unknown Rx Cyclobenzaprine [Flexeril] 10 mg PO QHS PRN #10 tablet 08/27/19 Unknown Rx Naproxen 500 mg PO Q12H PRN #20 tablet 08/27/19 Unknown Rx Allergies Allergy/AdvReac Type Severity Reaction Status Date / Time peanut Allergy Swelling Verified 09/24/18 19:58 Penicillins Allergy Itching Verified 09/24/18 19:58 ED Review of Systems ROS: Stated complaint: ABD PAIN/VAG DISCOMFORT/HEADACHES Other details as noted in HPI Constitutional: denies: chills, fever Eyes: denies: eye pain, eye discharge, vision change ENT: denies: ear pain, throat pain Respiratory: denies: cough, shortness of breath, wheezing Cardiovascular: denies: chest pain, palpitations Endocrine: no symptoms reported Gastrointestinal: denies: abdominal pain, nausea, diarrhea Genitourinary: dysuria, discharge. denies: urgency, frequency, hematuria, abnormal menses, dyspareunia Musculoskeletal: denies: back pain, joint swelling, arthralgia Skin: denies: rash, lesions Neurological: denies: headache, weakness, paresthesias Psychiatric: denies: anxiety, depression Hematological/Lymphatic: denies: easy bleeding, easy bruising ED Past Medical Hx - Past Medical History Previous Medical History?: Yes Hx Headaches / Migraines: Yes Hx Asthma: Yes - Surgical History Past Surgical History?: Yes Additional Surgical History: hernia repair, - Social History Smoking Status: Never Smoker Substance Use Type: None - Medications Home Medications: Home Medications Medication Instructions Recorded Confirmed Last Taken Type Fluconazole (Nf) [Diflucan TAB] 150 mg PO ONCE #1 tablet 08/02/17 Unknown Rx Sulfamethoxazole/Trimethoprim 1 each PO BID #14 tablet 08/02/17 Unknown Rx [Bactrim DS TAB] metroNIDAZOLE 0.75% [Vandazole 1 applicator VG QHS #1 tube 08/02/17 Unknown Rx 0.75% VAGINAL] Fluconazole [Diflucan TAB] 100 mg PO QDAY 2 Days #2 tablet 09/25/18 Unknown Rx Naproxen 500 mg PO BID PRN #12 tablet 09/25/18 Unknown Rx Ondansetron (Nf) [Zofran TAB] 8 mg PO Q8HR PRN #12 tablet 09/25/18 Unknown Rx Sulfamethoxazole/Trimethoprim 1 each PO BID 7 Days #14 tablet 09/25/18 Unknown Rx [Bactrim DS TAB] Ondansetron [Zofran Odt] 4 mg PO Q8HR PRN #14 tab.rapdis 11/01/18 Unknown Rx medroxyPROGESTERone ACETATE 10 mg PO QDAY #7 tablet 11/01/18 Unknown Rx [Provera] traMADoL [Ultram 50 MG tab] 50 mg PO Q4HR PRN #14 tablet 11/01/18 Unknown Rx Ibuprofen [Motrin] 800 mg PO Q8HR PRN #20 tablet 03/20/19 Unknown Rx Ondansetron [Zofran Odt] 4 mg PO Q8HR PRN #15 tab.rapdis 03/20/19 Unknown Rx metroNIDAZOLE [Flagyl] 500 mg PO Q12HR #14 tab 03/20/19 Unknown Rx Cyclobenzaprine [Flexeril] 10 mg PO QHS PRN #10 tablet 08/27/19 Unknown Rx Naproxen 500 mg PO Q12H PRN #20 tablet 08/27/19 Unknown Rx ED Physical Exam - General Limitations: No Limitations General appearance: alert, in no apparent distress - Head Head exam: Present: atraumatic, normocephalic - Neck Neck exam: Present: normal inspection, full ROM - Respiratory Respiratory exam: Absent: respiratory distress - Cardiovascular Cardiovascular Exam: Present: regular rate - GI/Abdominal GI/Abdominal exam: Present: soft, normal bowel sounds. Absent: distended, tenderness, guarding, rebound, rigid, diminished bowel sounds - External exam: Present: normal external exam, other (Angle Shear Set Up Operator [employer] tech present during exam). Absent: erythema, swelling, lesions, lacerations, ecchymosis, bleeding Speculum exam: Present: cervical discharge, other (Angle Shear Set Up Operator [employer] tech present during exam). Absent: erythema, vaginal discharge, vaginal bleeding, foreign body, tissue, laceration Bi-manual exam: Present: cervical motion tendernes, other (Angle Shear Set Up Operator [employer] tech present during exam). Absent: adnexal tenderness, adnexal mass, uterine enlargement, uterine tenderness - Extremities Exam Extremities exam: Present: full ROM - Back Exam Back exam: Present: normal inspection, full ROM. Absent: tenderness, CVA tenderness (R), CVA tenderness (L), muscle spasm, paraspinal tenderness, vertebral tenderness, rash noted - Neurological Exam Neurological exam: Present: alert, oriented X3, normal gait - Psychiatric Psychiatric exam: Present: normal affect, normal mood - Skin Skin exam: Present: warm, dry, intact, normal color. Absent: rash ED Course Vital Signs 05/30/20 14:23 Temperature 99.0 F Pulse Rate 81 Respiratory 16 Rate Blood Pressure 113/74 O2 Sat by Pulse 99 Oximetry - Reevaluation(s) Reevaluation #1: 05/30/20 19:15 Patient is speaking in full sentences with no signs of distress noted. ED Medical Decision Making - Lab Data Lab Results 05/30/20 Range/Units 19:45 Urine Color Yellow (Yellow) Urine Turbidity Clear (Clear) Urine pH 6.0 (5.0-7.0) Ur Specific [place] 1.029 (1.003-1.030) Urine Protein <15 mg/dl (Negative) mg/dL Urine Glucose (UA) Neg (Negative) mg/dL Urine Ketones Tr (Negative) mg/dL Urine Blood Neg (Negative) Urine Nitrite Neg (Negative) Urine Bilirubin Neg (Negative) Urine Urobilinogen 4.0 (<2.0) mg/dL Ur Leukocyte Esterase Neg (Negative) Urine WBC (Auto) 1.0 (0.0-6.0) /HPF Urine RBC (Auto) 1.0 (0.0-6.0) /HPF U Epithel Cells (Auto) 6.0 (0-13.0) /HPF Urine Mucus Few /HPF Urine HCG, Qual Negative (Negative) - Medical Decision Making This is a 25-year-old female that presents with possible STD with cervical motion tenderness. Patient is stable was examined by me. There is no abdominal tenderness. No pelvic pain. UA obtained. Wet prep obtained. Gonorrhea chlamydia swab pending. Patient was instructed to return in 3-5 days for GC results. Patient wanted empirical treatment so patient received 250 mg Rocephin and 1 g of azithromycin by mouth. Patient was instructed to Follow-up with a primary care doctor in 3-5 days or if symptoms worsen and continue return to emergency room as soon as possible. At time of discharge, the patient does not seem toxic or ill in appearance. No acute signs of distress noted. Patient agrees to discharge treatment plan of care. No further questions noted by the patient. Critical care attestation.: If time is entered above; I have spent that time in minutes in the direct care of this critically ill patient, excluding procedure time. ED Disposition Clinical Impression: Cervical motion tenderness, Possible exposure to STD Disposition: DC-01 TO HOME OR SELFCARE Is pt being admited?: No Does the pt Need Aspirin: No Condition: Stable Instructions: Safe Sex (ED) Additional Instructions: Follow-up with a primary care doctor in 3-5 days or if symptoms worsen and continue return to emergency room as soon as possible. Referrals: ALMAS JARAMILLO MD [Primary Care Provider] - 3-5 Days KALEN CANNON MD [Staff Physician] - 3-5 Days Forms: Work/School Release Form(ED)
[2020-05-30] MEDS ORDERED: LIDOCAINE-MPF (1%) 10 MG/1 ML VIAL 5 ML INFILTRATI ONE (19:29)
[2020-05-30] MEDS ORDERED: AZITHROMYCIN 250 MG TAB PO ONE (19:29)
[2020-05-30 19:52] LABS: Bilirubin,Urine NEG (Negative); Blood,Urine NEG (Negative); Color,Urine Yellow (Yellow); Mucus,Urine FEW /HPF; Protein,Urine <15 mg/dL mg/dL (Negative)
[2020-05-30 19:53] LABS: HCG Qualitative,Urine Negative (Negative)
[2020-05-30] MEDS ORDERED: diphenhydrAMINE 25 MG CAP PO ONE ×2 (20:17→20:18)
== END 2020-05-30 20:20 | disposition home or self-care (01) ==
LOC: ED 13:48
DX: N85.8 Other specified noninflammatory disorders of uterus (principal); G43.909 Migraine, unspecified, not intractable, without status migrainosus; J45.909 Unspecified asthma, uncomplicated; Z79.899 Other long term (current) drug therapy; Z88.0 Allergy status to penicillin; Z20.2 Contact with and (suspected) exposure to infections with a predominantly sexual mode of transmission; Z91.010 Allergy to peanuts
CPT/HCPCS: 81001; 81025; 87210; 87591; 96372; 99284; J0696